=== PATIENT | male | born 1950 | race Caucasian/White ===

== ENCOUNTER 2024-08-19 07:50 | Day surgery (SDC) | payer MEDICARE ==
[~2024-08-19 07:50] MED LIST: Metoclopramide 10 MG/2 ML SDV IV PRN
[2024-08-19] MEDS: Sodium Chloride 0.9% 1,000 ML IV SCH (08:23)
[2024-08-19] MEDS ORDERED: Propofol 500 MG/50 ML SDV ONE (09:45)
[2024-08-19 10:18] VITALS: BP 146/79; PULSE 60
== END 2024-08-19 11:10 | disposition home or self-care (01) ==
LOC: LB.SDS 07:50
PROVIDERS: ATTEND Surgery
DX: D12.0 Benign neoplasm of cecum (principal); K57.30 Diverticulosis of large intestine without perforation or abscess without bleeding; K64.4 Residual hemorrhoidal skin tags; E11.9 Type 2 diabetes mellitus without complications; E78.2 Mixed hyperlipidemia; Z79.84 Long term (current) use of oral hypoglycemic drugs; Z79.899 Other long term (current) drug therapy
CPT/HCPCS: 45385; 82947; 88305; C1773; J2704; J7030